=== PATIENT | female | born 2000 | race Caucasian/White ===

== ENCOUNTER 2023-01-29 09:26 | Emergency (ER) | payer MEDICAID ==
[~2023-01-29] VITALS: Ht 157.5 cm; Wt 68.0 kg
[2023-01-29 09:32] VITALS: BP 126/78; PULSE 85; RESP 18; TEMP 98.7; O2SAT 97
[2023-01-29 09:45] VITALS: BP 137/90; PULSE 92; RESP 18; TEMP 97.6; O2SAT 97
[2023-01-29] MEDS ORDERED: LIDOCAINE 2% 1000 MG/50 ML VIAL INJ ONE (09:45)
[2023-01-29] MEDS ORDERED: ACETAMINOPHEN EXTRA STRENGTH 500 MG TAB PO ONE (09:45)
[2023-01-29] MEDS ORDERED: BACTO TP ×2 (10:48→12:24)
[2023-01-29] MEDS ORDERED: ACET-10509 PO ×2 (10:48→12:24)
[2023-01-29] MEDS ORDERED: BACITRACIN OINT 500 UNITS/GM PKT TP ONE ×2 (11:02→11:05)
== END 2023-01-29 11:09 | disposition home or self-care (01) ==
LOC: MED 09:26
DX: L60.0 Ingrowing nail (principal); L08.9 Local infection of the skin and subcutaneous tissue, unspecified
CPT/HCPCS: 11730; 99284; J2001